=== PATIENT | female | born 1965 | race Caucasian/White ===

== ENCOUNTER 2018-04-21 19:57 | Emergency (ER) | payer BC, MEDICAID ==
[~2018-04-21] VITALS: Ht 142.2 cm; Wt 81.6 kg
[2018-04-21 20:20] VITALS: BP 148/92
--- NOTE | 2018-04-21 21:23 | NUR ---
APPLE PACKING HEADER BEDSIDE FOR BLOOD DRAW
[2018-04-21 21:30] LABS: BASOPHILS # (AUTO) 0.1 /CMM (0.0-0.2); BASOPHILS % (AUTO) 1.1 % (0.0-2.0); EOSINOPHILS % (AUTO) 4.3 % (0.0-6.0); HEMATOCRIT 37 % (33-45); HEMOGLOBIN 11.9 g/dL (11.5-14.8); LYMPHOCYTES # (AUTO) 2.1 /CMM (0.8-4.8); LYMPHOCYTES % (AUTO) 25.5 % (20.0-44.0); MEAN CORPUSCULAR HGB CONC 33 g/dl (31.0-36.0); MEAN CORPUSCULAR VOLUME 83 fL (82-100); MONOCYTES # (AUTO) 0.5 /CMM (0.1-1.30); MONOCYTES % (AUTO) 6.3 % (2.0-12.0); NEUTROPHILS # (AUTO) 5.1 /CMM (1.8-8.9); NEUTROPHILS % (AUTO) 62.8 % (43.0-81.0); PLATELET COUNT (AUTO) 233 /CMM (150-450); RED BLOOD CELL COUNT(AUTO) 4.41 MIL/uL (4.0-5.2); WHITE BLOOD COUNT (AUTO) 8.1 K/uL (4.3-11.0)
[2018-04-21] MEDS ORDERED: IBUPROFEN 600 MG TABLET PO ONE ×2 (21:30→21:33)
--- NOTE | 2018-04-21 21:31 | NUR ---
URINE SAMPLE COLLECTED BY PARTITION SETTER
[2018-04-21 21:39] LABS: CALCIUM, SERUM 8.8 mg/dL (8.5-10.1); CREATININE 0.6 mg/dL (0.6-1.3)
[2018-04-21 21:44] LABS: ALBUMIN 3.9 g/dL (3.4-5.0); BILIRUBIN,DIRECT 0.1 mg/dL (0.0-0.2); BILIRUBIN,TOTAL 0.2 mg/dL (0.2-1.0); TOTAL PROTEIN, SERUM 7.4 g/dL (6.4-8.2)
[2018-04-21 21:45] LABS: APPEARANCE,URINE Clear (CLEAR); BILIRUBIN,URINE Negative (NEGATIVE); BLOOD, URINE Large Ery/uL (NEGATIVE); COLOR,URINE Yellow (YELLOW); KETONES,URINE Negative (NEGATIVE); LEUKOCYTE ESTERASE ,URINE Negative (NEGATIVE); NITRITE, URINE Negative (NEGATIVE); PH,URINE 6.5 (5.0-8.0); PROTEIN,URINE Negative (NEGATIVE); UGLUCOSE Negative (NEGATIVE); UROBILINOGEN,URINE 0.2 EU/dL (0.2)
[2018-04-21 21:57] LABS: BACTERIA,URINE Rare /HPF (None Seen); RBC,URINE 21-50 /HPF (0-2); SQUAMOUS EPITHELIAL CELL,UR Few /HPF (None Seen); WBC,URINE 0-2 /HPF (0-3)
--- NOTE | 2018-04-21 21:57 | NUR ---
Patient discharged to home in stable condition. Written and verbal after care instructions given. Patient verbalizes understanding of instruction.
== END 2018-04-21 21:58 | disposition home or self-care (01) ==
LOC: ER 20:00
DX: F45.8 Other somatoform disorders (principal); R10.9 Unspecified abdominal pain; F41.9 Anxiety disorder, unspecified; I10 Essential (primary) hypertension; F17.200 Nicotine dependence, unspecified, uncomplicated; Z98.890 Other specified postprocedural states; Z90.49 Acquired absence of other specified parts of digestive tract; Z90.3 Acquired absence of stomach [part of]
CPT/HCPCS: 36415; 80048; 80076; 81001; 83690; 85025; 99283; A4606; Z7610; 81000-TC

== ENCOUNTER 2019-08-15 20:03 | Emergency (ER) | payer BC, MEDICAID, OTHER ==
[~2019-08-15] VITALS: Ht 167.6 cm; Wt 81.6 kg
[2019-08-15 20:03] VITALS: BP 143/92
--- NOTE | 2019-08-15 20:10 | NUR ---
PT CAME TO THE ED C/O COUGH X 2 MONTHS. PT IS CURRENTLY ON PREDNISONE 10 MG PO DAILY AND FLUTICASONE.PT AAOX4, AMBULATORY, RESPIRATIONS EVEN AND UNLABORED ON ROOM AIR W/ NAD NOTED.AWAITING FOR MD MOLINA. PT CONNECTED TO THE SUPERVISOR CAR INSTALLATIONS AND POX
--- NOTE | 2019-08-15 21:17 | NUR ---
Patient discharged to home in stable condition. Written and verbal after care instructions given. Patient verbalizes understanding of instruction.
== END 2019-08-15 21:17 | disposition home or self-care (01) ==
LOC: ER 20:10
DX: R05 Cough (principal); R06.02 Shortness of breath; I10 Essential (primary) hypertension; Z98.890 Other specified postprocedural states
CPT/HCPCS: 71045-TC